=== PATIENT | male | born 1985 | race American Indian/Alaskan Native ===

== ENCOUNTER 2018-09-07 11:08 | Emergency (ER) | payer SELFPAY ==
[2018-09-07 11:21] VITALS: BP 168/91
--- NOTE | 2018-09-07 12:44 | Emergency Department Report ---
ED General Adult HPI - General Chief complaint: Dizziness Stated complaint: DIZZY Time Seen by Provider: 09/07/18 12:16 Source: patient Mode of arrival: Ambulatory Limitations: No Limitations - History of Present Illness Initial comments: Mr. Garsia is a 32-year-old male with history of severe obesity who presents with weakness dizziness for several days. Has generalized malaise. Decreased energy. He is concerned for elevated blood pressure or diabetes. Has not had primary care in several years. His is also concerned for sleep apnea. His told me that he stops breathing during his sleep. He understands that his lifestyle does not allow for healthy living. He travels across [place] for large projects. 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 No discrete pain at this time. He denies headache,chest pain abdominal pain. He does have morning headaches intermittently. Mother in her sleep at age of 64 presumably due to stroke. Father has history of diabetes. Denies paralysis. Denies trouble walking. Denies speech disturbance. - Related Data Allergies Allergy/AdvReac Type Severity Reaction Status Date / Time No Known Allergies Allergy Unverified 09/07/18 11:21 ED Review of Systems ROS: Stated complaint: DIZZY Other details as noted in HPI Comment: All other systems reviewed and negative Constitutional: malaise Respiratory: denies: cough Cardiovascular: denies: chest pain Endocrine: denies: increased hunger, increased thirst, increased urine, unexplained weight gain, unexplained weight loss Gastrointestinal: denies: abdominal pain, nausea, vomiting ED Past Medical Hx - Past Medical History Previous Medical History?: No - Surgical History Past Surgical History?: No - Social History Smoking Status: Current Every Day Smoker Substance Use Type: None Other Social History: with 2 children and 2 sons ages 3 and 13 lives in [facility] ED Physical Exam - General Limitations: No Limitations General appearance: alert, in no apparent distress, other (obese habitus) - Head Head exam: Present: atraumatic, normocephalic - Eye Eye exam: Present: normal appearance - ENT ENT exam: Present: mucous membranes moist - Neck Neck exam: Present: normal inspection. Absent: tenderness, meningismus - Respiratory Respiratory exam: Present: normal lung sounds bilaterally. Absent: respiratory distress, wheezes, rhonchi - Cardiovascular Cardiovascular Exam: Present: regular rate, normal rhythm, normal heart sounds. Absent: bradycardia, tachycardia, systolic murmur, diastolic murmur, rubs, gallop - GI/Abdominal GI/Abdominal exam: Present: soft, normal bowel sounds. Absent: distended, tenderness, guarding, rebound - Rectal Rectal exam: Present: deferred - Extremities Exam Extremities exam: Present: normal inspection - Back Exam Back exam: Present: normal inspection - Neurological Exam Neurological exam: Present: alert, oriented X3 - Psychiatric Psychiatric exam: Present: normal affect, normal mood - Skin Skin exam: Present: warm, dry, intact, normal color. Absent: rash ED Course Vital Signs 09/07/18 11:19 Temperature 98.1 F Pulse Rate 71 Respiratory 20 Rate Blood Pressure 168/91 O2 Sat by Pulse 99 Oximetry ED Medical Decision Making - Medical Decision Making Mr. Garsia presents with generalized malaise, fatigue. He does have elevated blood pressure without signs and symptoms of end orgam damage. I am concerned that he has sleep apnea with the history provided by . He understands that he will need a full physical by primary care physician. Discharged home in stable condition. NO indication of CVA, ACS or emergent condition. I strongly recommended a sleep study. Critical care attestation.: If time is entered above; I have spent that time in minutes in the direct care of this critically ill patient, excluding procedure time. ED Disposition Clinical Impression: Fatigue, Generalized weakness Disposition: DC-01 TO HOME OR SELFCARE Is pt being admited?: No Does the pt Need Aspirin: No Condition: Stable Instructions: Fatigue (ED) Additional Instructions: You urgently need a full physical and sleep study. Referrals: LAURA ROSAS JR, MD [Staff Physician] - 3-5 Days [facility] [Outside] - 3-5 Days Forms: Work/School Release Form(ED)
== END 2018-09-07 12:53 | disposition home or self-care (01) ==
LOC: ED 11:08
DX: R53.1 Weakness (principal); R42 Dizziness and giddiness; R53.83 Other fatigue; F17.200 Nicotine dependence, unspecified, uncomplicated
CPT/HCPCS: 82962; 99282